=== PATIENT | female | born 2000 | race Caucasian/White ===

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

== ENCOUNTER 2020-05-13 23:52 | Emergency (ER) | payer BC, OTHER ==
[~2020-05-13] VITALS: Ht 160 cm; Wt 73.9 kg
--- NOTE | 2020-05-14 00:10 | NUR ---
PT TKAEN TO BED 07 WITH STEADY GAIT.
--- NOTE | 2020-05-14 00:11 | NUR ---
20 YO F BIB SELF FOR C/C OF 8/10 RIGHT LOWER BACK PAIN X3 MONTHS THAT GOT INCREASINGLY WORSE TONIGHT AFTER [place]. PT STATES PAIN RADIATES DOWN THE BACK OF R LOWER LEG. PEDAL PULSES ARE EQUAL AND REGULAR. PT STATES SHE TOOK PRESCRIBED BACLOFEN AT 2100 YESTERDAY WITH NO RELIEF OF SYMTOMS. DENIES DYSURIA/FREQUENCY. BED LOCKED AND IN LOWEST POSITION. MED HX: SCIATICA RX: BACLOFEN NKA
[2020-05-14] MEDS ORDERED: KETOROLAC 60 MG/2 ML VIAL IM ONE (00:15)
--- NOTE | 2020-05-14 00:30 | NUR ---
PT REFUSED IM TORODOL. ERMD MADE AWARE.
--- NOTE | 2020-05-14 01:00 | NUR ---
SHERYL YOUSSEF AT BEDSIDE EVALUATING PT
[2020-05-14 01:06] VITALS: BP 128/91
== END 2020-05-14 01:06 | disposition home or self-care (01) ==
LOC: MED 23:52
DX: M54.5 Low back pain (principal)
CPT/HCPCS: 81002; 81025; 99283; J1885